=== PATIENT | male | born 2000 | race Caucasian/White ===

== ENCOUNTER 2024-04-06 11:32 | Emergency (ER) | payer OTHER ==
[~2024-04-06] VITALS: Ht 177.8 cm; Wt 117.9 kg
[2024-04-06] MEDS ORDERED: PRED20 PO (12:25)
== END 2024-04-06 12:30 | disposition home or self-care (01) ==
LOC: ER 11:32
DX: R05.9 Cough, unspecified (principal); R07.81 Pleurodynia
CPT/HCPCS: 71046; 99283-25